=== PATIENT | male | born 1965 | race Caucasian/White ===

== ENCOUNTER 2019-11-05 08:24 | Day surgery (SDC) | payer BC ==
[2019-11-04 09:00] VITALS: BMI 22.8
[~2019-11-05 08:24] MED LIST: LACTATED RINGERS 1,000 ML IV SCH; LIDOCAINE 1% (10MG/ML) FOR IV START INTRADERMA PRN
[2019-11-05 08:48] VITALS: TEMP 98.5
[2019-11-05] MEDS ORDERED: PROPOFOL 10 MG/ML 20 ML VIAL IV ONE (10:01)
[2019-11-05] MEDS ORDERED: LIDOCAINE 1% INJ 10MG/ML (20 ML MDV) ONE (10:01)
--- NOTE | 2019-11-05 10:36 | P.PCN ---
Date of Procedure: 11/05/19 Procedure(s) Performed: Brief history: Patient is a pleasant 54-year-old white male scheduled for an elective upper endoscopy as well as colonoscopy as a part of evaluation of conference of GERD and screening for colon cancer. He was diagnosed with colon cancer in 1984 and is status post chemoradiation therapy and has been in clinical remission. Omeprazole 40 mg daily for possible GERD. Procedure performed: Esophagogastroscopy Colonoscopy Preoperative diagnosis: Long-standing history of GERD Screening for colon cancer Anesthesia: MAC Procedure: After informed consent was obtained from the patient was brought into the endoscopy unit and IV sedation was administered by anesthesia under continuous monitoring. Initially upper endoscopy was. The Olympus GF 160 video endoscope was inserted inserted into the mouth and esophaguscould not be intubated because of severe scarring at the level of the upper esophageal sphincter with possible stricture in this area. The Olympus Video Pediatric Upper Endoscopy Was Then Used but Could Not Intubate the Esophagus because of the scarring and stricture involving the upper esophageal sphincter.. At this time a bronchoscope was and gently was able to advance the scope into the stomach. It was insufflated into the stomach and upon careful examination the antrum and body, appeared normal. However couldn't be visualized because of the stomach was not possible. The scope was then withdrawn into the esophagus. The GE junction was located at 36 cm to the incisors. It appeared regular with no erythema erosions or ulcerations. Rest of the esophagus appeared normal. Patient tolerated the procedure well. At this time the patient continued to remain sedation. Initial digital rectal examination was normal. Olympus CF 160 video colonoscope was then inserted into the rectum and gradually advanced to the cecum without any difficulty. Careful examination was performed as the scope was gradually being withdrawn. The prep was excellent. The cecum, ascending colon, transverse colon, descending colon, sigmoid colon and rectum appeared normal. Scattered sigmoid diverticulosis seen. Retroflexion was performed in the rectum and no lesions were noted. Patient tolerated the procedure well. Impression: 1. Upper endoscopy revealed normal esophagus with no evidence of Jarvis's esophagus normal-appearing stomach. Scarring of the upper esophageal sphincter precluding passage of the regular upper endoscopy 2. Colonoscopy revealed scattered sigmoidal diverticulosis but no evidence of colorectal neoplasia Recommendations: Findings of this examination were discussed with the patient as well as. Her family. He was advised to have a repeat screening colonoscopy in 10 years. He will continue with omeprazole 20 mg daily and follow antireflux measures.
[2019-11-05 10:39] VITALS: PULSE 64; RESP 17
[2019-11-05 10:46] VITALS: BP 95/64
== END 2019-11-05 11:13 | disposition home or self-care (01) ==
LOC: ORWHC2ENDO 08:24
PROVIDERS: ATTEND Internal Medicine Gastroenterology
DX: Z12.11 Encounter for screening for malignant neoplasm of colon (principal); K57.30 Diverticulosis of large intestine without perforation or abscess without bleeding; K21.9 Gastro-esophageal reflux disease without esophagitis; K22.2 Esophageal obstruction; E07.9 Disorder of thyroid, unspecified; Z85.038 Personal history of other malignant neoplasm of large intestine; Z92.21 Personal history of antineoplastic chemotherapy; Z92.3 Personal history of irradiation; Z91.048 Other nonmedicinal substance allergy status; Z79.899 Other long term (current) drug therapy; Z79.890 Hormone replacement therapy; Z91.041 Radiographic dye allergy status; Z85.21 Personal history of malignant neoplasm of larynx
CPT/HCPCS: 43235; G0105; J2001; J2704

== ENCOUNTER 2021-09-27 20:50 | Emergency (ER) | payer BC ==
[2021-09-27 21:00] VITALS: TEMP 98.7
[2021-09-27] MEDS ORDERED: SODIUM CHLORIDE 0.9% 1,000 ML IV STA (21:34)
--- NOTE | 2021-09-27 21:45 | ED ---
Syncope HPI - General Chief Complaint: Syncope Stated Complaint: Syncope, Seizure Time Seen by Provider: 09/27/21 21:18 Source: patient, RN notes reviewed, old records reviewed Mode of arrival: ambulatory Limitations: no limitations - History of Present Illness Initial Comments: This is a 56-year-old male to the emergency department for evaluation. Connie he coming in for syncope was concern for maybe seizure-like activity. He was playing again with his sons or was choking on some water he was concern for loss of breath, she was concern a pass out he did hit the ground. No prior history of syncope he does struggle with swallowing eating and drinking all time. No travel history or sick contacts. Only medical history is of cancer throat cancer which is been years ago. Currently takes no medications no fevers cough congestion currently no headache chest pain shortness breath or abdominal pain MD Complaint: loss of consciousness, collapsed -: minutes(s) Prodromal Symptoms: lightheaded, shortness of breath -: second(s) Witnessed: yes - by bystander Injuries Sustained Associated with Event: None Current Symptoms: back to baseline Context: at rest Treatments Prior to Arrival: none - Related Data Home Medications Medication Instructions Recorded Confirmed Levothyroxine Sodium [Synthroid] 50 mcg PO DAILY 11/04/19 09/27/21 Omeprazole Magnesium [PriLOSEC OTC] 20 mg PO DAILY 11/04/19 09/27/21 Loratadine [Claritin] 10 mg PO DAILY PRN 09/27/21 09/27/21 Allergies Allergy/AdvReac Type Severity Reaction Status Date / Time Iodinated Contrast Media Allergy Rash/Hives Verified 09/27/21 22:09 Review of Systems ROS Statement: Those systems with pertinent positive or pertinent negative responses have been documented in the HPI. ROS Other: All systems not noted in ROS Statement are negative. 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 History of Any Multi-Drug Resistant Organisms: None Reported Past Surgical History: Adenoidectomy Additional Past Surgical History / Comment(s): Larynx biopsy Past Anesthesia/Blood Transfusion Reactions: Previous Problems w/ Anesthesia Additional Past Anesthesia/Blood Transfusion Reaction / Comment(s): woke up violent as child. Past Psychological History: No Psychological Hx Reported Smoking Status: Current some day smoker Past Alcohol Use History: Occasional Past Drug Use History: Marijuana - Past Family History Mother Family Medical History: No Reported History General Exam General appearance: alert, in no apparent distress Head exam: Present: atraumatic, normocephalic, normal inspection Eye exam: Present: normal appearance, PERRL, EOMI. Absent: scleral icterus, conjunctival injection, periorbital swelling ENT exam: Present: normal exam, mucous membranes moist Neck exam: Present: normal inspection. Absent: tenderness, meningismus, lymphadenopathy Respiratory exam: Present: normal lung sounds bilaterally. Absent: respiratory distress, wheezes, rales, rhonchi, stridor Cardiovascular Exam: Present: regular rate, normal rhythm, normal heart sounds. Absent: systolic murmur, diastolic murmur, rubs, gallop, clicks GI/Abdominal exam: Present: soft, normal bowel sounds. Absent: distended, tenderness, guarding, rebound, rigid Extremities exam: Present: normal inspection, full ROM, normal capillary refill. Absent: tenderness, pedal edema, joint swelling, calf tenderness Back exam: Present: normal inspection Neurological exam: Present: alert, oriented X3, CN II-XII intact Psychiatric exam: Present: normal affect, normal mood Skin exam: Present: warm, dry, intact, normal color. Absent: rash Course Vital Signs 09/27/21 09/27/21 09/27/21 20:52 21:00 22:00 Temperature 98.7 F Pulse Rate 81 75 75 Respiratory 18 16 16 Rate Blood Pressure 126/86 112/79 O2 Sat by Pulse 97 95 96 Oximetry 09/27/21 23:26 Temperature Pulse Rate 71 Respiratory 16 Rate Blood Pressure 115/73 O2 Sat by Pulse 100 Oximetry - Reevaluation(s) Reevaluation #1: 09/27/21 22:08 Medical record is reviewed Reevaluation #2: 09/28/21 Patient has no history of syncope or seizures, no recurrent syncope or seizure here in the ER Reevaluation #3: 09/28/21 Patient informed results and questions answered Medical Decision Making - Medical Decision Making 56 male to the emergency department for evaluation. Patient has no recurrent syncope here in the ER patient presents after syncopal event testing is negative and he can be discharged home - Lab Data Result diagrams: 09/27/21 21:34 09/27/21 21:34 Lab Results 09/27/21 09/27/21 09/27/21 Range/Units 21:34 21:34 21:34 WBC 4.8 (3.8-10.6) k/uL RBC 4.56 (4.30-5.90) m/uL Hgb 14.9 (13.0-17.5) gm/dL Hct 43.5 (39.0-53.0) % MCV 95.6 (80.0-100.0) fL MCH 32.6 (25.0-35.0) pg MCHC 34.1 (31.0-37.0) g/dL RDW 12.3 (11.5-15.5) % Plt Count 246 (150-450) k/uL MPV 7.8 Neutrophils % 57 % Lymphocytes % 26 % Monocytes % 8 % Eosinophils % 5 % Basophils % 1 % Neutrophils # 2.7 (1.3-7.7) k/uL Lymphocytes # 1.3 (1.0-4.8) k/uL Monocytes # 0.4 (0-1.0) k/uL Eosinophils # 0.2 (0-0.7) k/uL Basophils # 0.1 (0-0.2) k/uL PT 9.5 (9.0-12.0) sec INR 0.9 (<1.2) APTT 24.6 (22.0-30.0) sec D-Dimer 0.38 (<0.60) mg/L FEU Sodium 138 (137-145) mmol/L Potassium 4.2 (3.5-5.1) mmol/L Chloride 105 (98-107) mmol/L Carbon Dioxide 23 (22-30) mmol/L Anion Gap 10 mmol/L BUN 13 (9-20) mg/dL Creatinine 0.82 (0.66-1.25) mg/dL Est GFR (CKD-EPI)AfAm >90 (>60 ml/min/1.73 sqM) Est GFR (CKD-EPI)NonAf >90 (>60 ml/min/1.73 sqM) Glucose 133 H (74-99) mg/dL Calcium 9.0 (8.4-10.2) mg/dL Phosphorus 4.2 (2.5-4.5) mg/dL Magnesium 1.8 (1.6-2.3) mg/dL Total Bilirubin 0.2 (0.2-1.3) mg/dL AST 45 (17-59) U/L ALT 69 H (4-49) U/L Alkaline Phosphatase 91 (38-126) U/L Troponin I (0.000-0.034) ng/mL NT-Pro-B Natriuret Pep pg/mL Total Protein 7.0 (6.3-8.2) g/dL Albumin 4.3 (3.5-5.0) g/dL TSH 2.450 (0.465-4.680) mIU/L 09/27/21 09/27/21 Range/Units 21:34 21:34 WBC (3.8-10.6) k/uL RBC (4.30-5.90) m/uL Hgb (13.0-17.5) gm/dL Hct (39.0-53.0) % MCV (80.0-100.0) fL MCH (25.0-35.0) pg MCHC (31.0-37.0) g/dL RDW (11.5-15.5) % Plt Count (150-450) k/uL MPV Neutrophils % % Lymphocytes % % Monocytes % % Eosinophils % % Basophils % % Neutrophils # (1.3-7.7) k/uL Lymphocytes # (1.0-4.8) k/uL Monocytes # (0-1.0) k/uL Eosinophils # (0-0.7) k/uL Basophils # (0-0.2) k/uL PT (9.0-12.0) sec INR (<1.2) APTT (22.0-30.0) sec D-Dimer (<0.60) mg/L FEU Sodium (137-145) mmol/L Potassium (3.5-5.1) mmol/L Chloride (98-107) mmol/L Carbon Dioxide (22-30) mmol/L Anion Gap mmol/L BUN (9-20) mg/dL Creatinine (0.66-1.25) mg/dL Est GFR (CKD-EPI)AfAm (>60 ml/min/1.73 sqM) Est GFR (CKD-EPI)NonAf (>60 ml/min/1.73 sqM) Glucose (74-99) mg/dL Calcium (8.4-10.2) mg/dL Phosphorus (2.5-4.5) mg/dL Magnesium (1.6-2.3) mg/dL Total Bilirubin (0.2-1.3) mg/dL AST (17-59) U/L ALT (4-49) U/L Alkaline Phosphatase (38-126) U/L Troponin I <0.012 (0.000-0.034) ng/mL NT-Pro-B Natriuret Pep 32 pg/mL Total Protein (6.3-8.2) g/dL Albumin (3.5-5.0) g/dL TSH (0.465-4.680) mIU/L - Radiology Data Radiology results: report reviewed (Chest x-rays negative for acute disease), image reviewed Disposition Clinical Impression: Vasovagal syncope, Syncope Disposition: HOME SELF-CARE Condition: Good Instructions (If sedation given, give patient instructions): Syncope (ED) Is patient prescribed a controlled substance at d/c from ED?: No Referrals: Marta Gorman MD [Primary Care Provider] - 1-2 days Time of Disposition: 23:50
[2021-09-27 21:54] VITALS: RESP 16
[2021-09-27 22:11] LABS: Basophils # (A) 0.1 k/uL (0-0.2); Basophils % (A) 1 %; Eosinophils # (A) 0.2 k/uL (0-0.7); Eosinophils % (A) 5 %; HCT 43.5 % (39.0-53.0); HGB 14.9 gm/dL (13.0-17.5); Lymphocytes # (A) 1.3 k/uL (1.0-4.8); Lymphocytes % (A) 26 %; MCH 32.6 pg (25.0-35.0); MCHC 34.1 g/dL (31.0-37.0); MCV 95.6 fL (80.0-100.0); Mean Platelet Volume 7.8; Monocytes # (A) 0.4 k/uL (0-1.0); Monocytes % (A) 8 %; Neutrophils # (A) 2.7 k/uL (1.3-7.7); Neutrophils % (A) 57 %; Platelet Count 246 k/uL (150-450); RBC 4.56 m/uL (4.30-5.90); RDW 12.3 % (11.5-15.5); WBC 4.8 k/uL (3.8-10.6)
--- NOTE | 2021-09-27 22:18 | XR ---
EXAMINATION TYPE: XR chest 1V portable DATE OF EXAM: 09/27/2021 COMPARISON: NONE HISTORY: Syncope TECHNIQUE: Single view FINDINGS: There is no heart failure nor confluent pneumonic infiltrate. Costophrenic angles are clear . Bony thorax is intact IMPRESSION: No active cardiopulmonary disease.
[2021-09-27 22:20] LABS: INR 0.9 (<1.2); Partial Thromboplastin Time 24.6 sec (22.0-30.0); Prothrombin Time 9.5 sec (9.0-12.0)
[2021-09-27 22:34] LABS: ALT 69 U/L (4-49); AST 45 U/L (17-59); African American GFR (CKD) >90 (>60 ml/min/1.73 sqM); Albumin 4.3 g/dL (3.5-5.0); Alkaline Phosphatase 91 U/L (38-126); Anion Gap 10 mmol/L; Blood Urea Nitrogen 13 mg/dL (9-20); Carbon Dioxide 23 mmol/L (22-30); Chloride 105 mmol/L (98-107); Glucose 133 mg/dL (74-99); Magnesium 1.8 mg/dL (1.6-2.3); Non-African American GFR(CKD) >90 (>60 ml/min/1.73 sqM); Phosphorus 4.2 mg/dL (2.5-4.5); Potassium 4.2 mmol/L (3.5-5.1); Sodium 138 mmol/L (137-145); Total Bilirubin 0.2 mg/dL (0.2-1.3)
[2021-09-27 23:27] VITALS: BP 115/73; PULSE 71
== END 2021-09-27 23:28 | disposition home or self-care (01) ==
LOC: EC 20:50
DX: R55 Syncope and collapse (principal); E07.9 Disorder of thyroid, unspecified; Z79.899 Other long term (current) drug therapy; K21.9 Gastro-esophageal reflux disease without esophagitis; Z79.83 Long term (current) use of bisphosphonates; Z91.041 Radiographic dye allergy status
CPT/HCPCS: 36415; 71045; 80053; 83735; 83880; 84100; 84443; 84484; 85025; 85379; 85610; 85730; 93005; 96360; 99285

== ENCOUNTER 2021-10-24 17:17 | Emergency (ER) | payer BC ==
[2021-10-24 17:22] VITALS: BP 164/90; PULSE 62; RESP 16; TEMP 97.8
== END 2021-10-24 18:31 | disposition left against medical advice (07) ==
LOC: EC 17:17
DX: Z53.9 Procedure and treatment not carried out, unspecified reason (principal)
CPT/HCPCS: 93005; 99499

== ENCOUNTER → 2021-12-26 | Outpatient (CLI) | payer BC ==
[2021-12-26 18:02] LABS: HCT 43.1 % (39.6-50.0); HGB 14.8 g/dL (13.0-17.0); MCH 31.4 pg (27.0-32.0); MCHC 34.3 g/dL (32.0-37.0); MCV 91.5 fL (80.0-97.0); Mean Platelet Volume 10.5 fL (9.5-12.2); NRBC Per 100 WBC 0 /100 WBCS (0.0-0.0); Platelet Count 286 X 10*3/uL (140-440); RBC 4.71 X 10*6/uL (4.40-5.60); RDW 12.7 % (11.5-14.5); WBC 6.56 X 10*3/uL (4.50-10.00)
[2021-12-26 18:17] LABS: Anion Gap 11.6 mmol/L (10.00-18.00); Blood Urea Nitrogen 16.5 mg/dL (9.0-27.0); Carbon Dioxide 25.4 mmol/L (20.0-27.5); Non-African American GFR(CKD) 95.8 (60.0-200.0); Potassium 4.5 mmol/L (3.5-5.5)
== END | disposition home or self-care (01) ==
LOC: LABPAT 10:08
PROVIDERS: ATTEND Internal Medicine Interventional Cardiology
DX: Z01.812 Encounter for preprocedural laboratory examination (principal); R07.9 Chest pain, unspecified; R94.39 Abnormal result of other cardiovascular function study
CPT/HCPCS: 80051; 82565; 84520; 85027

== ENCOUNTER 2022-01-10 06:15 | Day surgery (SDC) | payer BC ==
[~2022-01-10 06:15] MED LIST changes: +ALPRAZolam 0.25 MG TAB PO PRN; +ALPRAZolam 0.5 MG TAB PO PRN; -LACTATED RINGERS 1,000 ML IV SCH; -LIDOCAINE 1% (10MG/ML) FOR IV START INTRADERMA PRN; +NITROGLYCERIN SL TABS 0.4 MG TAB SUBLINGUAL PRN
[2022-01-10] MEDS: SODIUM CHLORIDE 0.9% 1,000 ML in EMPTY BAG 1 BAG IV SCH ×2 (06:25→20:13)
[2022-01-10] MEDS ORDERED: HEPARIN SODIUM,PORCINE 2,500 UNIT in SODIUM CHLORIDE 0.9% 250 ML IRRIGATION PRN (07:00)
[2022-01-10] MEDS ORDERED: ASPIRIN 325 MG TAB PO ONE (07:00)
[2022-01-10] MEDS ORDERED: HEPARIN SODIUM,PORCINE 10,000 UNIT in SODIUM CHLORIDE 0.9% 1,000 ML IRRIGATION PRN (07:00)
[2022-01-10] MEDS ORDERED: ATORVASTATIN 80 MG TAB PO ONE (07:00)
[2022-01-10] MEDS ORDERED: VERAPAMIL 2.5 MG/ML 2 ML AMP ONE (07:19)
[2022-01-10] MEDS ORDERED: HEPARIN SODIUM 1,000 UN/ML (10ML VL) ONE (07:28)
[2022-01-10] MEDS ORDERED: fentaNYL (PF) 50 MCG/ML 2 ML AMP ONE (07:28)
[2022-01-10] MEDS ORDERED: fentaNYL (PF) 50 MCG/ML 2 ML AMP IV ONE (07:39)
[2022-01-10] MEDS ORDERED: MIDAZOLAM 2 MG/2 ML VIAL IV ONE (07:43)
[2022-01-10] MEDS ORDERED: LIDOCAINE 1% INJ 10MG/ML (30 ML VIAL-PF) SQ ONE (07:43)
[2022-01-10] MEDS ORDERED: VERAPAMIL SYRINGE (5 MG/10 ML) INTRAARTER ONE (07:44)
[2022-01-10] MEDS: HEPARIN SODIUM 1,000 UN/ML (10ML VL) IV ONE ×4 (07:48→08:25)
[2022-01-10] MEDS ORDERED: PRASUGREL 10 MG TAB ONE (07:55)
[2022-01-10] MEDS ORDERED: PRASUGREL 10 MG TAB PO ONE (08:00)
[2022-01-10] MEDS ORDERED: IOPAMIDOL-370 100ML BTL INJ ONE ×3 (08:13→09:07)
[2022-01-10] MEDS ORDERED: NITROGLYCERIN 1000MCG/10ML SYRINGE INTRACORON ONE (08:17)
[2022-01-10] MEDS ORDERED: ATROPINE SULFATE 0.1 MG/ML 10ML SYRINGE IV PRN (09:29)
[2022-01-10] MEDS ORDERED: ZOLPIDEM 5 MG TAB PO PRN (09:29)
[2022-01-10] MEDS ORDERED: MAG HYDROX/AL HYDROX/SIMETH 30 ML CUP PO PRN (09:29)
[2022-01-10] MEDS ORDERED: NITROGLYCERIN SL TABS 0.4 MG TAB SUBLINGUAL PRN (09:29)
[2022-01-10] MEDS ORDERED: RX INFO: IV CONTRAST WAS GIVEN 1 EACH MISC MISCELLANE PRN (09:29)
[2022-01-10] MEDS ORDERED: SODIUM CHLORIDE 0.9% 1,000 ML in EMPTY BAG 1 BAG IV SCH (09:30)
--- NOTE | 2022-01-10 09:43 | P.CARDCATH ---
Date of Procedure: 01/10/22 Description of Procedure: Cardiac Catheterization: The patient is a 56-year-old male who has been complaining of exertional chest discomfort, he had an abnormal stress test. Recommendations were made regarding cardiac catheterization, the risks and the complications were discussed with the patient who is in full understanding and agreement. Procedure Description: Patient was brought to labor relations worker in fasting semi-sedated state after receiving Fentanyl and Benadryl achieiving moderate conscious sedated state. Using Xylocaine Anesthesia and Seldinger technique, a 6-Mexican sheath was introduced in the right radial artery . Subsequently, selective coronary angiography was performed using a 5-Mexican 3.5 bend Sobeida catheter. Multiple views of the coronary artery including hemiaxial views were obtained. The 5-Mexican Pigtail catheter was used to cross the aortic valve and LVEDP was calculated. After removing the catheter a 6-Mexican EBU 3.75 guiding catheter was introduced in the system and after cannulating the left main a 0.014 BMW J-wire with a straight fine cross microcatheter where introduced, there was inability to advance the wire, it was exchanged to a 0.014 whisper J-wire and after crossing the lesion the wire was exchanged back to the BMW wire, following that the microcatheter was removed and a 2.0 x 12 mm Treck was advanced and multiple inflations at 8 demarco were done after removing the balloon a 2.5 x 12 mm NC Treck balloon was advanced and inflation at 8 demarco were done, subsequently a 3.0 x 18 mm Xience nyasia point stent was advanced and deployed at 16 demarco. After removing the balloon a [place] eye IVUS catheter was advanced and images were obtained, after removing the catheter is 3.5 x 15 mm NC Treck was advanced and one inflation at 8 demarco was done. After removing the balloon and the wire images were obtained and showed a stable stenting, at that time the wire was advanced into the circumflex, positioned in the distal OM, the 2.5 x 12 mm NC balloon was advanced and one inflation at 8 demarco was done after removing the balloon a 3.5 x 18 mm Xience nyasia point stent was advanced and deployed at 14 demarco after removing the balloon the IVUS was advanced and imaging were performed. After removing the catheter a 4.5 x 8 mm NC Treck was advanced and one inflation in the proxim al segment of the stent was performed at 10 deamrco, after the last inflation the balloon and the wire where withdrawn and images were obtained and reveal stable successful stenting. Following that, catheter and sheath were removed. Hemostasis was obtained with deployment of TR band . There was no immediate complication. Patient was returned to room in stable condition. Of note, the patient received a total of 6000 he received an units of intravenous heparin as well as intra-arterial verapamil. He received an oral loading dose of Effient. His ACT was monitored. He had EKG changes and chest discomfort that resolved at the end of the procedure. Findings: Left main: This is a short sized vessel, bifurcating into LAD and left circumflex, left main has no high-grade stenosis LAD: This is a large size vessel, giving rise to a large proximal diagonal branch subsequently distal total occlusion of the LAD with minimal antegrade flow Left circumflex: This is a nondominant vessel, large in caliber, giving rise to a large obtuse marginal branch that has a 90% stenosis at the proximal segment RCA: This is a nondominant vessel bifurcating distally into PDA and PLV, the RCA has mild obstructive disease Collaterals: There is collaterals RCA towards the distal LAD Left Ventriculogram: Not performed Hemodynamics: There was no gradient across the aortic valve, LVEDP was 14-16 mmHg Conclusion: 1. Occluded mid LAD 2. Critical stenosis in the proximal second OM 3. Mild disease in the RCA 4. Successful stenting of the mid LAD with reduction of the stenosis from 100% to 0% 5. Successful stenting of OM 2 with reduction of stenosis from 90% to 0% Recommendations: The patient will continue on aggressive coronary risk modification in addition to dual antiplatelets treatment with aspirin and after for at least 6 months. The findings and the recommendations were discussed with the patient and the family and they were in full understanding and agreement. Duration of sedation is 77 minutes.
[2022-01-10] MEDS: METOPROLOL TARTRATE 25 MG TAB PO SCH (20:12)
[2022-01-11] MEDS ORDERED: LEVOTHYROXINE 50 MCG TAB PO SCH (06:30)
--- NOTE | 2022-01-11 07:23 | P.PN ---
Subjective Progress Note Date: 01/11/22 PROGRESS NOTE The patient is a 56-year-old male who presented with symptoms of exertional chest discomfort and had an abnormal stress echocardiogram, underwent cardiac catheterization that revealed subtotally occluded LAD with critical stenosis in the left circumflex, underwent stenting to both vessels. He's feeling well this morning, he denies any chest discomfort, dizziness or palpitations. Medications: Aspirin, Lipitor 40 mg daily, Lopressor 25 mg twice a day, Effient 10 mg daily PHYSICAL EXAMINATION: Blood pressure 117/70 heart rate 60 LUNGS: Clear to auscultation HEART: Regular rate and rhythm, S1-S2 no S3 was a systolic murmur ABDOMEN: Soft, nontender, no organomegaly EXTREMETIES: No edema, right radial pulse intact LAB: EKG shows sinus mechanism with T-wave inversion anteriorly. IMPRESSION: 1. Status post stenting of the LAD and left circumflex 2. Hyperlipidemia PLAN: 1. Continue present therapy 2. Review labs 3. The patient will be discharged home today to be followed as an outpatient Objective - Vital Signs Vital signs: Vital Signs Temp 97.8 F 01/11/22 02:12 Pulse 55 L 01/11/22 02:12 Resp 17 01/11/22 02:12 BP 100/51 01/11/22 02:12 Pulse Ox 96 01/11/22 02:12 FiO2 Intake & Output 01/10/22 01/11/22 01/11/22 18:59 06:59 18:59 Intake Total 1080 Balance 1080 Weight 67.7 kg Intake: IV 300 Intake, IV Titration 300 Amount Sodium Chloride 0.9% 1, 300 000 ml In Empty Bag 1 bag @ 1 ML/KG/HR 68.039 mls/ hr IV .[id number] ON LICENSE OF [facility] Rx#: [id number] Oral 480 Other: Voiding Method Toilet # Voids 1 3
[2022-01-11 08:03] LABS: African American GFR (CKD) >90 (>60 ml/min/1.73 sqM); Anion Gap 5 mmol/L; Blood Urea Nitrogen 17 mg/dL (9-20); Calcium 8.9 mg/dL (8.4-10.2); Carbon Dioxide 30 mmol/L (22-30); Chloride 104 mmol/L (98-107); Glucose 112 mg/dL (74-99); Non-African American GFR(CKD) >90 (>60 ml/min/1.73 sqM); Sodium 139 mmol/L (137-145)
[2022-01-11 08:13] VITALS: BP 94/60; PULSE 57; RESP 18; TEMP 96.8
[2022-01-11] MEDS: METOPROLOL TARTRATE 25 MG TAB PO SCH (08:14)
[2022-01-11] MEDS ORDERED: PRASUGREL 10 MG TAB PO SCH (09:00)
[2022-01-11] MEDS ORDERED: ATORVASTATIN 40 MG TAB PO SCH (09:00)
[2022-01-11] MEDS ORDERED: ASPIRIN 81 MG PO SCH (09:00)
== END 2022-01-11 09:45 | disposition home or self-care (01) ==
LOC: CATHCVL 06:15 → 6NMEDSUR 09:03 → CATHCVL 01-11 09:45
PROVIDERS: ATTEND Internal Medicine Interventional Cardiology
DX: I25.10 Atherosclerotic heart disease of native coronary artery without angina pectoris (principal); I25.82 Chronic total occlusion of coronary artery; Z87.891 Personal history of nicotine dependence; E78.00 Pure hypercholesterolemia, unspecified; E78.2 Mixed hyperlipidemia; R55 Syncope and collapse; Z79.82 Long term (current) use of aspirin; Z79.890 Hormone replacement therapy; Z79.899 Other long term (current) drug therapy; Z91.048 Other nonmedicinal substance allergy status
CPT/HCPCS: 93458; 80048; C9600 ×2; C1769 ×4; C1887 ×2; C1894; C1725 ×4; C1753; C1874 ×2; J2250; J2001; J3010; J1644; Q9967

== ENCOUNTER → 2022-04-09 | Outpatient (CLI) | payer BC ==
--- NOTE | 2022-04-09 10:55 | CT ---
"EXAMINATION TYPE: CT angio neck CT DLP: 195.70 mGycm, Automated exposure control for dose reduction was used. DATE OF EXAM: 04/09/2022 10:42 AM COMPARISON: None. CLINICAL INDICATION:Male, 57 years old with history of I65.29; PHH, Carotid stenosis. Hx laryngeal ca . TECHNIQUE: Axially acquired helical CT angiogram of the neck was obtained with contrast utilizing 65 cc of Isovue-370 administered intravenously. Axial images are supplemented with 3D reconstructions wh ich were post-processed at an independent workstation. NASCET criteria used. FINDINGS: CTA NECK: Right Carotid System: There is complete occlusion of the right common carotid artery just at its origin and throughout the right internal carotid artery to its terminus. There is reconstitution of the right external carotid artery. Left Carotid System: The common carotid artery and external carotid artery are patent. Moderate focal narrowing of the pro ximal common carotid artery secondary to a calcified plaque (series 4, image 52). Last then 50% steno sis at the origin of the left internal carotid artery secondary to calcified and noncalcified plaque. The remaining portions of the internal carotid artery demonstrate normal size without significant na rrowing. Vertebral arteries are patent. Left vertebral artery is dominant. Moderate stenosis of the origins of the bilateral vertebral artery secondary to calcified and noncalcified plaque. There is a three-vessel aortic arch. The origins of the great vessels are patent. No evidence of hemo dynamically significant stenosis. IMPRESSION: 1. 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 2. Less than 50% stenosis of the origin of the left internal carotid artery secondary to calcified an d noncalcific plaque. 3. Moderate stenosis at the origins of the bilateral vertebral arteries secondary to calcified and no ncalcified plaque. A Yellow level critical message alert has been initiated for Robbi Dc MD via the [facility] 0 | Critical Results System on 04/09/2022 10:52 AM. This message alert has been sent to Robbi Dc MD via the preferences provided by the clinician for the receipt of Radiology Critical Findings. [facility] [place] [id number]."
== END | disposition home or self-care (01) ==
LOC: RADCTMAIN 09:29
PROVIDERS: ATTEND Internal Medicine Interventional Cardiology
DX: I65.23 Occlusion and stenosis of bilateral carotid arteries (principal); I67.2 Cerebral atherosclerosis
CPT/HCPCS: 70498; Q9967

== ENCOUNTER → 2022-07-01 | Outpatient (CLI) | payer BC ==
[2022-07-01 16:24] LABS: ALT 263 U/L (10-49); AST 115 U/L (14-35); African American GFR (CKD) 110.3 (60.0-200.0); Albumin 4.5 g/dL (3.8-4.9); Albumin/Globulin Ratio 1.88 (1.60-3.17); Alkaline Phosphatase 223 U/L (41-126); BUN/Creat Ratio 17.67 Ratio (12.00-20.00); Blood Urea Nitrogen 15.9 mg/dL (9.0-27.0); Calcium 9.8 mg/dL (8.7-10.3); Chloride 106 mmol/L (96-109); Chol/HDL Ratio 4.34 Ratio; Globulin 2.4 g/dL (1.6-3.3); Glucose 111 mg/dL (70-110); LDL Cholesterol,Calculated 178.7 mg/dL (0.0-131.0); Non-African American GFR(CKD) 95.1 (60.0-200.0); Potassium 4.5 mmol/L (3.5-5.5); Sodium 141 mmol/L (135-145); Total Protein 6.9 g/dL (6.2-8.2)
== END | disposition home or self-care (01) ==
LOC: LABWHC1 09:41
PROVIDERS: ATTEND Nurse Practitioner Adult Health
DX: I10 Essential (primary) hypertension (principal); E78.2 Mixed hyperlipidemia
CPT/HCPCS: 36415; 80053; 80061

== ENCOUNTER → 2022-11-11 | Outpatient (CLI) | payer BC ==
[2022-11-11 19:55] LABS: ALT 134 U/L (10-49); AST 62 U/L (14-35)
== END | disposition home or self-care (01) ==
LOC: LABWHC1 09:22
PROVIDERS: ATTEND Internal Medicine Interventional Cardiology
DX: E78.2 Mixed hyperlipidemia (principal)
CPT/HCPCS: 36415; 84450; 84460

== ENCOUNTER → 2022-11-18 | Outpatient (CLI) | payer BC ==
--- NOTE | 2022-11-18 10:44 | US ---
EXAMINATION TYPE: US abdomen complete DATE OF EXAM: 11/18/2022 COMPARISON: NONE CLINICAL INDICATION: Male, 57 years old with history of R10.13 EPIGASTRIC PAIN; Pt states episode of epigastric pain TECHNIQUE: Multiple sonographic images of the abdomen are obtained. FINDINGS: EXAM MEASUREMENTS: Liver Length: 17.3 cm Gallbladder Wall: 0.2 cm CBD: 0.4 cm Spleen: 11.0 cm Right Kidney: 10.7 x 4.5 x 5.2 cm Left Kidney: 10.1 x 5.6 x 5.2 cm GRINDER OUTSIDE DIAMETER NOTES: Pancreas: 3mm duct visualized mid body. Normal typically up to 2 mm. Tail obscured by overlying bow el gas Liver: Difficult to penetrate, echogenic in appearance Gallbladder: wnl Evidence for sonographic Ibarra's sign: No CBD: wnl Spleen: Possible granuloma Right Kidney: wnl Left Kidney: wnl Upper IVC: wnl Abd Aorta: Proximal portion gassed out, mid and distal portions wnl. IMPRESSION: 1. Slightly prominent pancreatic duct. Consider follow-up with ERCP.
== END | disposition home or self-care (01) ==
LOC: RADUSWWP 07:34
PROVIDERS: ATTEND Family Medicine
DX: K86.89 Other specified diseases of pancreas (principal); R10.13 Epigastric pain
CPT/HCPCS: 76700

== ENCOUNTER → 2022-11-25 | Outpatient (CLI) | payer BC ==
--- NOTE | 2022-11-25 11:23 | CT ---
EXAMINATION TYPE: CT abdomen w con DATE OF EXAM: 11/25/2022 COMPARISON: None HISTORY: epigastric pain CT DLP: 686 mGycm CONTRAST: CT scan of the abdomen is performed with Oral Contrast and with IV Contrast, patient injected with 10 0 mL of Isovue 300. FINDINGS: LUNG BASES-: No visible nodule. No infiltrate. LIVER/GB: No calcified gallstones. No space occupying hepatic lesion. Biliary tree is of normal ca liber. There is evidence of hepatic steatosis. PANCREAS: No inflammation. No distinct mass. SPLEEN: No splenic enlargement. No lesion seen. ADRENALS: No nodule. No thickening. KIDNEYS/BLADDER: No hydronephrosis. No nephrolithiasis. No distinct renal mass. Urinary bladder g rossly unremarkable. BOWEL: Visualized bowel loops reveals normal caliber without inflammatory process. LYMPH NODES: No greater than 1cm abdominal or pelvic lymph nodes are appreciated. AORTA: No significant abnormality. OSSEOUS STRUCTURES: No significant abnormality is seen. OTHER: No significant additional abnormality is seen. IMPRESSION: 1. No significant abnormality to account for the patient's symptoms.
== END | disposition home or self-care (01) ==
LOC: RADCTMAIN 10:30
PROVIDERS: ATTEND Family Medicine
DX: R10.13 Epigastric pain (principal)
CPT/HCPCS: 74160; Q9967

== ENCOUNTER → 2022-12-30 | Outpatient (CLI) | payer BC ==
[2022-12-30 16:36] LABS: ALT 139 U/L (10-49); AST 59 U/L (14-35); Albumin 4.6 d/dL (3.8-4.9); Alkaline Phosphatase 101 U/L (41-126); Blood Urea Nitrogen 15.2 mg/dL (9.0-27.0); Calcium 9.6 mg/dL (8.7-10.3); Carbon Dioxide 24.4 mmol/L (21.6-31.8); Chloride 106 mmol/L (96-109); Globulin 2.3 d/dL (1.6-3.3); Glucose 134 mg/dL (70-110); Iron 96 UG/DL (65-175); Potassium 4.7 mmol/L (3.5-5.5); Sodium 141 mmol/L (135-145); Total Bilirubin 0.2 mg/dL (0.3-1.2); Total Iron Binding Capacity 353 UG/DL (228-460); Total Protein 6.9 d/dL (6.2-8.2)
[2022-12-30 17:20] LABS: Basophils # (A) 0.06 X 10*3/uL (0.00-0.10); Basophils % (A) 1.2 %; Eosinophils # (A) 0.25 X 10*3/uL (0.04-0.35); Eosinophils % (A) 5.1 %; HGB 15.8 d/dL (13.0-17.0); Lymphocytes # (A) 1.15 X 10*3/uL (0.90-5.00); Lymphocytes % (A) 23.2 %; MCH 32.3 pg (27.0-32.0); MCHC 33.6 d/dL (32.0-37.0); MCV 96.1 FL (80.0-97.0); Mean Platelet Volume 10.2 FL (9.5-12.2); Monocytes # (A) 0.67 X 10*3/uL (0.20-1.00); Monocytes % (A) 13.5 %; NRBC Per 100 WBC 0 X 10*3/uL (0.00-0.01); Neutrophils % (A) 56.6 %; Platelet Count 245 X 10*3/uL (140-440); RBC 4.89 X 10*6/uL (4.40-5.60); RDW 13.2 % (11.5-14.5); WBC 4.95 X 10*3/uL (4.50-10.00)
[2022-12-31 01:04] LABS: Ceruloplasmin 18.4 mg/dL (20.0-60.0); Hepatitis B Surface Antigen Nonreactive; Hepatitis C IgG Antibody Nonreactive
[2022-12-31 07:49] LABS: Albumin 4.6 d/dL (3.8-4.9); Protein, Total 6.9 d/dL (6.2-8.2)
[2022-12-31 19:38] LABS: Gamma Globulin 0.88 d/dL (0.70-1.50)
== END | disposition home or self-care (01) ==
LOC: LABWHC1 08:14
PROVIDERS: ATTEND Internal Medicine Gastroenterology
DX: R74.01 Elevation of levels of liver transaminase levels (principal)
CPT/HCPCS: 36415; 80053; 82103; 82390; 82728; 83516; 83540; 83550; 84165; 85025; 86038; 86803; 87340

== ENCOUNTER → 2023-03-04 | Outpatient (CLI) | payer BC ==
[2023-03-04 11:04] LABS: Basophils # (A) 0.07 X 10*3/uL (0.00-0.10); Basophils % (A) 1.3 %; Eosinophils # (A) 0.39 X 10*3/uL (0.04-0.35); Eosinophils % (A) 7.2 %; HCT 46.3 % (39.6-50.0); HGB 16.1 g/dL (13.0-17.0); Lymphocytes % (A) 18.6 %; MCHC 34.8 g/dL (32.0-37.0); MCV 94.9 FL (80.0-97.0); Mean Platelet Volume 9.8 FL (9.5-12.2); Monocytes # (A) 0.58 X 10*3/uL (0.20-1.00); Monocytes % (A) 10.8 %; NRBC Per 100 WBC 0 X 10*3/uL (0.00-0.01); Neutrophils # (A) 3.32 X 10*3/uL (1.80-7.70); Neutrophils % (A) 61.5 %; Platelet Count 258 X 10*3/uL (140-440); RBC 4.88 X 10*6/uL (4.40-5.60); RDW 12.7 % (11.5-14.5); WBC 5.39 X 10*3/uL (4.50-10.00)
[2023-03-04 11:20] LABS: ALT 144 U/L (10-49); AST 87 U/L (14-35); Albumin 4.6 g/dL (3.8-4.9); Alkaline Phosphatase 105 U/L (41-126); BUN/Creat Ratio 17.78 Ratio (12.00-20.00); Calcium 9.9 mg/dL (8.7-10.3); Carbon Dioxide 23.6 mmol/L (21.6-31.8); Chloride 102 mmol/L (96-109); Globulin 2.3 g/dL (1.6-3.3); Glucose 127 mg/dL (70-110); Sodium 139 mmol/L (135-145); Total Bilirubin 0.7 mg/dL (0.3-1.2); Total Protein 6.9 g/dL (6.2-8.2)
== END | disposition home or self-care (01) ==
LOC: LABWHC1 07:17
PROVIDERS: ATTEND Internal Medicine Gastroenterology
DX: R19.4 Change in bowel habit (principal); R74.01 Elevation of levels of liver transaminase levels
CPT/HCPCS: 36415; 80053; 83516; 85025

== ENCOUNTER → 2023-04-21 | Outpatient (CLI) | payer BC ==
[2023-04-21 15:13] LABS: ALT 67 U/L (10-49); AST 40 U/L (14-35); Chol/HDL Ratio 2.34 Ratio; LDL Cholesterol,Calculated 56.3 mg/dL (0.0-131.0)
== END | disposition home or self-care (01) ==
LOC: LABWHC1 10:42
PROVIDERS: ATTEND Nurse Practitioner Adult Health
DX: E78.2 Mixed hyperlipidemia (principal)
CPT/HCPCS: 36415; 80061; 84450; 84460

== ENCOUNTER → 2023-06-09 | Outpatient (CLI) | payer OTHER ==
--- NOTE | 2023-06-12 12:41 | CT ---
EXAMINATION TYPE: CT angio neck DATE OF EXAM: 06/09/2023 3:45 PM CLINICAL INDICATION:Male, 58 years old with history of I65.29 OCCLUSION AND STENOSIS OF UNSPECIFIED C AROT; Carotid stenosis. Hx of larynx CA. COMPARISON: 04/09/2022. TECHNIQUE: Axially acquired helical CT Angiogram of the Neck was obtained with and without contrast. Axial images are supplemented with coronal and sagittal MIP reconstructions. 3D reconstructions were also performed and were post-processed at an independent workstation. Estimated carotid stenosis was calculated using the NASCET criteria. CT DLP: 289.0 mGycm, Automated exposure control for dose reduction was used. Contrast used:100ml mL of Isovue 370 with IV Contrast, Oral contrast used: , None. FINDINGS: CTA NECK: Right Carotid System: Occlusion of the right common carotid artery extending from its origin [place]. Left Carotid System: The common carotid is patent. There is high-grade stenosis in the midportion with 70-90% stenosis sec ondary to noncalcified plaque. Series 10 image 80. External carotid arteries are patent. There is sanjiv roximately 50 % stenosis at the carotid bifurcation secondary to calcified plaque. The rest of the in ternal carotid artery is patent. Vertebral arteries are patent without evidence hemodynamically significant stenosis. There is a three-vessel aortic arch. The origins of the great vessels are patent. No evidence of hemo dynamically significant stenosis. There is a level 1B lymph node measuring 7 mm in short axis which is stable from 04/09/2022. IMPRESSION: 1. Occlusion of the right common carotid artery extending from its origin [place]. Findings similar to 04/09/2022. 2. Left mid common carotid artery high-grade stenosis of 70-90%, similar to 04/09/2022. 3. Left common carotid artery is patent with atherosclerotic disease with up to 50% stenosis at the bifurcation secondary to predominantly calcified plaque. Thinning similar to 04/09/2022. 4. Stable left level 1B lymph node measuring up to 7 mm compared to 04/19/2022.
== END | disposition home or self-care (01) ==
LOC: RADCTMAIN 15:00
PROVIDERS: ATTEND Surgery
DX: I65.23 Occlusion and stenosis of bilateral carotid arteries (principal); Z85.21 Personal history of malignant neoplasm of larynx
CPT/HCPCS: 70498; Q9967

== ENCOUNTER → 2023-06-18 | Outpatient (CLI) | payer OTHER ==
[2023-06-18 11:56] LABS: Basophils # (A) 0.06 X 10*3/uL (0.00-0.10); Eosinophils # (A) 0.46 X 10*3/uL (0.04-0.35); Eosinophils % (A) 7.4 %; HCT 43.9 % (39.6-50.0); HGB 15.1 g/dL (13.0-17.0); Lymphocytes # (A) 1.55 X 10*3/uL (0.90-5.00); Lymphocytes % (A) 24.9 %; MCH 31.3 pg (27.0-32.0); MCHC 34.4 g/dL (32.0-37.0); MCV 91.1 FL (80.0-97.0); Mean Platelet Volume 10.2 FL (9.5-12.2); Monocytes # (A) 0.81 X 10*3/uL (0.20-1.00); NRBC Per 100 WBC 0 X 10*3/uL (0.00-0.01); Neutrophils # (A) 3.32 X 10*3/uL (1.80-7.70); Neutrophils % (A) 53.2 %; Platelet Count 236 X 10*3/uL (140-440); RBC 4.82 X 10*6/uL (4.40-5.60); RDW 11.9 % (11.5-14.5); WBC 6.23 X 10*3/uL (4.50-10.00)
[2023-06-18 13:16] LABS: ALT 48 U/L (10-49); AST 33 U/L (14-35); Albumin 4.2 g/dL (3.8-4.9); Alkaline Phosphatase 80 U/L (41-126); Blood Urea Nitrogen 17.2 mg/dL (9.0-27.0); Calcium 9.6 mg/dL (8.7-10.3); Carbon Dioxide 25.9 mmol/L (21.6-31.8); Chloride 107 mmol/L (96-109); Glucose 135 mg/dL (70-110); Potassium 4.7 mmol/L (3.5-5.5); Sodium 142 mmol/L (135-145); Total Bilirubin 0.3 mg/dL (0.3-1.2); Total Protein 6.2 g/dL (6.2-8.2)
== END | disposition home or self-care (01) ==
LOC: LABWHC1 08:26
PROVIDERS: ATTEND Internal Medicine Gastroenterology
DX: R74.01 Elevation of levels of liver transaminase levels (principal)
CPT/HCPCS: 36415; 80053; 85025

== ENCOUNTER → 2023-09-12 | Outpatient (CLI) | payer OTHER ==
--- NOTE | 2023-09-15 16:28 | CTL ---
EXAMINATION TYPE: CT Low Dose Lung DATE OF EXAM ORDERED: 09/12/2023 HISTORY: Personal history of nicotine dependence, 1.5 pack per day x40.6 years, not current smoker. L darryn cancer screening CT DLP: 88.[address] CTDI: 2.5 mGy Automated exposure control for dose reduction was used. SCREENING VISIT: First screening visit COMPARISON: None TECHNIQUE: Low dose computed tomography scan was performed through the chest at 1 mm thick sections a nd reconstructed images in multiple planes at 1 mm and [address] DIAGNOSTIC QUALITY: Satisfactory FINDINGS: Nodules: No clinically significant pulmonary nodule. LUNGS: COPD: Severity: None Fibrosis: Severity: None Lymph nodes: None Other findings: Trace secretion within the distal trachea. Minimal bibasilar dependent subsegmental a telectasis. RIGHT PLEURAL SPACE: Effusion: None Calcification: None Thickening: None Pneumothorax: None LEFT PLEURAL SPACE: Effusion: None Calcification: None Thickening: None Pneumothorax: None HEART: Heart Size: Normal Coronary Calcification: Moderate Pericardial Effusion: None OTHER FINDINGS: Upper abdomen: None Bony thorax: None Supraclavicular region: None Other: None IMPRESSION: No clinically significant pulmonary nodule. CT LUNG RAD AND CT CHEST RECOMMENDATION: Lung-Rad 1 Negative: Continue annual screening with LDCT in 12 months. S Modifier (other clinically significant findings): None
== END | disposition home or self-care (01) ==
LOC: RADCTMAIN 08:22
PROVIDERS: ATTEND Student in an Organized Health Care Education/Training Program
DX: Z12.2 Encounter for screening for malignant neoplasm of respiratory organs (principal); K14.8 Other diseases of tongue; C32.9 Malignant neoplasm of larynx, unspecified; R49.0 Dysphonia; Z87.891 Personal history of nicotine dependence
CPT/HCPCS: 71271

== ENCOUNTER 2023-10-03 12:16 | Inpatient (IN) | payer OTHER ==
[~2023-10-03 12:16] MED LIST changes: -ALPRAZolam 0.25 MG TAB PO PRN; -ALPRAZolam 0.5 MG TAB PO PRN; +HYDROmorphone 0.5 MG/0.5 ML SYRINGE IVP PRN; +LIDOCAINE 1% (10MG/ML) FOR IV START INTRADERMA PRN; -NITROGLYCERIN SL TABS 0.4 MG TAB SUBLINGUAL PRN; +fentaNYL (PF) 50 MCG/ML 2 ML AMP IVP PRN
[2023-10-03] MEDS: DEXAMETHASONE SOD PHOSPHATE 4 MG/ML 1 ML VIAL IV ONE (13:01)
[2023-10-03] MEDS: ONDANSETRON 4 MG/2 ML VIAL IVP ONE (13:01)
[2023-10-03] MEDS: LACTATED RINGERS 1,000 ML IV SCH ×2 (13:01→20:57)
[2023-10-03] MEDS: IV FLUID CONTINUATION 1,000 ML IV ONE (13:06)
[2023-10-03] MEDS: MIDAZOLAM 2 MG/2 ML VIAL IV PRN (13:19)
[2023-10-03 13:42] LABS: Basophils % (A) 1 %; Eosinophils # (A) 0.1 k/uL (0-0.7); Eosinophils % (A) 4 %; HCT 29.7 % (39.0-53.0); HGB 10.1 gm/dL (13.0-17.5); Lymphocytes # (A) 0.9 k/uL (1.0-4.8); Lymphocytes % (A) 27 %; MCH 31.2 pg (25.0-35.0); MCHC 33.9 g/dL (31.0-37.0); Mean Platelet Volume 8.6; Monocytes # (A) 0.3 k/uL (0-1.0); Monocytes % (A) 10 %; Neutrophils # (A) 1.9 k/uL (1.3-7.7); Neutrophils % (A) 56 %; Platelet Count 135 k/uL (150-450); RBC 3.23 m/uL (4.30-5.90); RDW 12.6 % (11.5-15.5); WBC 3.5 k/uL (3.8-10.6)
[2023-10-03] MEDS ORDERED: NEOSTIGMINE 1 MG/ML 10 ML VIAL ONE (13:47)
[2023-10-03] MEDS ORDERED: LIDOCAINE 1% INJ 10MG/ML (20 ML MDV) ONE (13:47)
[2023-10-03] MEDS ORDERED: PROPOFOL 10 MG/ML 20 ML VIAL IV ONE (13:47)
[2023-10-03] MEDS ORDERED: PHENYLEPHRINE 10 MG/ML VIAL ONE (13:47)
[2023-10-03] MEDS ORDERED: HEPARIN SODIUM,PORCINE 10,000 UNIT/ML 1 ML VIAL ONE (13:47)
[2023-10-03] MEDS ORDERED: fentaNYL (PF) 50 MCG/ML 2 ML AMP ONE (13:47)
[2023-10-03] MEDS ORDERED: SUCCINYLCHOLINE CHLORIDE 200 MG/10 ML VIAL IV ONE (13:47)
[2023-10-03] MEDS ORDERED: ROCURONIUM 10 MG/ML (5 ML VIAL) IV ONE (13:47)
[2023-10-03] MEDS ORDERED: HYDROmorphone (PF) 1 MG/ML ONE (13:47)
[2023-10-03] MEDS ORDERED: GLYCOPYRROLATE 0.2 MG/ML 2 ML VIAL ONE (13:47)
[2023-10-03] MEDS: THROMBIN (BOVINE) 5,000 UNIT VIAL TOPICAL ONE (14:20)
[2023-10-03] MEDS: LIDOCAINE 1% INJ 10MG/ML (20 ML MDV) SQ ONE (14:20)
[2023-10-03] MEDS: HEPARIN SODIUM (1,000 UNIT/ML) 2,000 UNIT in SODIUM CHLORIDE 0.9% 1,000 ML IRRIGATION ONE (14:23)
[2023-10-03] MEDS: ceFAZolin 2 GM in SODIUM CHLORIDE 0.9% 500 ML 500 ML IRRIGATION ONE (14:23)
[2023-10-03] MEDS: LACTATED RINGERS 1,000 ML IV ONE ×2 (14:24→16:54)
[2023-10-03] MEDS ORDERED: TRIMETHOBENZAMIDE 100 MG/ML 2 ML VIAL IM PRN (17:12)
[2023-10-03] MEDS ORDERED: BENZOCAINE/MENTHOL LOZENG 1 EACH LOZENGE MUCOUS MEM PRN (17:12)
[2023-10-03] MEDS ORDERED: MAG HYDROX/AL HYDROX/SIMETH 30 ML CUP PO PRN (17:12)
--- NOTE | 2023-10-03 17:12 | P.OP ---
Date of Procedure: 10/03/23 Description of Procedure: Date of Procedure: 10/03/2023 Preoperative Diagnosis: Left common and internal carotid artery stenosis >80% Postoperative Diagnosis: Same Procedure(s) Performed: Left carotid endarterectomy with patch angioplasty Anesthesia: DWIGHT Surgeon: Norman Olmos Estimated Blood Loss (ml): 30 IV Fluids: See anesthesia record Pathology: Carotid plaque Condition: stable Disposition: PACU Indications for Procedure: 58-year-old gentleman with history of laryngeal cancer with previous radiation therapy presented originally to the office secondary to severe carotid stenosis seen on previous CT scan. He had carotid Dopplers obtained which also demonstrated severe stenosis greater than 80%. When discussed options he was not a candidate for TCAR due to the location of plaque in his common carotid artery as well as the dense calcification and angles which he was not a candidate for transfemoral stenting due to this anatomy. He presents for carotid endarterectomy and patch angioplasty. Description of Procedure: After written informed consent was obtained the patient all risks benefits and complications including nerve damage were described the patient is brought to the operative suite and laid in a supine position. The area of the neck was prepped and draped in usual sterile fashion after appropriate anesthetic was performed per the anesthesiologist. A timeout was performed in normal fashion antibiotics were administered prior to incision. An oblique incision was then created just anterior to the sternocleidomastoid musculature with a 10 blade scalpel and dissection was carried down to the carotid sheath. The carotid sheath was then entered after facial vein was locat ed and suture ligated in normal fashion. The common carotid, internal carotid, external carotid and superior thyroid arteries were located and dissected free in a meticulous fashion circumferentially and controlled with vessel loops. There was dense scarring noted throughout the entirety of the dissection. Attention was then placed to locating the vagus nerve which was adhered to the common carotid artery on the anterior lateral aspect which was meticulously dissected free without injury. Hypoglossal nerve which was located and to be in dense scarring and was meticulously dissected free without damage. Once controlled patient was administered heparin and followed with ACTs for appropriate heparinization. Once ACT was above 200 the proximal and distal aspects of the dissection were then controlled with vascular clamps. Arteriotomy was then created with 11 blade scalpel and extended with Cruz Boogie scissors. Cerebral oximetry was followed and did not decrease more than 10%. No shunt was required and endarterectomy was then performed with a [place] and elevator. The plaque was dense and flaky with aspects of what appeared to be purulence. The plaque was then feathered at the distal aspect and the internal carotid artery and removed. The area was copiously irrigated with heparinized saline and all free debris was removed. A 0.8 x 8 cm bovine pericardial patch was then chosen and patch angioplasty was performed with 6-0 Prolene suture in a running fashion. Prior to last sutures being placed the inflow was released flushing any free debris out of the patch. This was reclamped and the internal carotid artery was released revealing good brisk flow and was once again reclamped. The external carotid and superior thyroid artery were then released followed by the common carotid artery to allow any free debris to be flushed into the external system. Final sutures were placed and secured. Internal carotid artery control was then released. Good pulsatile flow was noted through the patch and a Doppler was utilized demonstrating good brisk flow into the internal, external carotid arteries without any signs of obstruction. Hemostasis was then assured with Gelfoam and thrombin. A 10-[place] DARÍO drain was then placed in normal fashion and secured with 3-0 nylon suture. The incision was then closed in a multilayer fashion after hemostasis was assured. The skin was then cleansed and dressings were placed. Patient tolerated the procedure well and was following commands and moving all extremities. Patient was then sent to PACU for recovery.
[2023-10-03 18:16] LABS: Basophils % (A) 0 %; Eosinophils % (A) 0 %; HCT 41.1 % (39.0-53.0); Lymphocytes # (A) 0.7 k/uL (1.0-4.8); Lymphocytes % (A) 8 %; MCH 31.5 pg (25.0-35.0); MCHC 35.7 g/dL (31.0-37.0); MCV 88.3 fL (80.0-100.0); Monocytes # (A) 0.2 k/uL (0-1.0); Monocytes % (A) 2 %; Neutrophils % (A) 89 %; Platelet Count 189 k/uL (150-450); RBC 4.66 m/uL (4.30-5.90); RDW 12.8 % (11.5-15.5)
[2023-10-03 18:17] LABS: HGB 14.7 gm/dL (13.0-17.5)
[2023-10-03 19:00] VITALS: RESP 16
[2023-10-03] MEDS: ACETAMINOPHEN TAB 325 MG TAB PO PRN (19:08)
[2023-10-03 19:47] LABS: African American GFR (CKD) >90 (>60 ml/min/1.73 sqM); Anion Gap 7 mmol/L; Blood Urea Nitrogen 15 mg/dL (9-20); Carbon Dioxide 20 mmol/L (22-30); Chloride 110 mmol/L (98-107); Glucose 137 mg/dL (74-99); Non-African American GFR(CKD) >90 (>60 ml/min/1.73 sqM); Potassium 3.6 mmol/L (3.5-5.1); Sodium 137 mmol/L (137-145)
[2023-10-03] MEDS: MORPHINE SULFATE 2 MG/ML SYRINGE IVP PRN (20:59)
--- NOTE | 2023-10-04 08:03 | P.PN ---
Subjective Progress Note Date: 10/04/23 Principal diagnosis: carotid stenosis Doing well. Pain controlled. No issues overnight. Objective - Vital Signs Vital signs: Vital Signs Temp 97.1 F L 10/04/23 03:10 Pulse 85 10/04/23 03:10 Resp 16 10/04/23 03:10 BP 118/72 10/04/23 03:10 Pulse Ox 93 L 10/04/23 03:10 FiO2 Intake & Output 10/03/23 10/04/23 10/04/23 18:59 06:59 18:59 Intake Total 2452 180 Output Total 530 2700 Balance 1922 -2520 Weight 71.9 kg 73.5 kg Intake: IV 2452 Intake, IV Titration 180 Amount Lactated Ringers 1,000 ml 180 @ 60 mls/hr IV .[id number] [facility] Rx#:[id number] Output: Drainage 25 Left Neck 25 Urine 500 2675 Estimated Blood Loss 30 Other: Voiding Method Indwelling Catheter - Exam left neck incision clean, dry and intact no hematoma drain in place, minimal output No focal deficits, tongue midline, no facial droop - Labs CBC & Chem 7: 10/03/23 17:45 10/03/23 17:45 Labs: Abnormal Lab Results - Last 24 Hours (Table) 10/03/23 10/03/23 10/03/23 Range/Units 13:31 17:45 17:45 WBC 3.5 L (3.8-10.6) k/uL RBC 3.23 L (4.30-5.90) m/uL Hgb 10.1 L (13.0-17.5) gm/dL Hct 29.7 L (39.0-53.0) % Plt Count 135 L (150-450) k/uL Neutrophils # 8.0 H (1.3-7.7) k/uL Lymphocytes # 0.9 L 0.7 L (1.0-4.8) k/uL Chloride 110 H (98-107) mmol/L Carbon Dioxide 20 L (22-30) mmol/L Glucose 137 H (74-99) mg/dL Assessment and Plan Assessment: #1 Left CEA Plan: Removed drain Ok for discharge home Continue aspirin, statin follow up in 2 weeks.
[2023-10-04 08:12] VITALS: BP 124/74; PULSE 70; TEMP 97.4
[2023-10-04] MEDS: ASPIRIN 81 MG PO SCH (08:13)
[2023-10-04] MEDS: HYDROcodone/APAP 5-325MG 1 EACH TAB PO STA (09:21)
--- NOTE | 2023-10-04 09:42 | P.CONS ---
History of Present Illness - Reason for Consult Consult date: 10/04/23 Medical Management Requesting physician: Norman Olmos - History of Present Illness History of Presenting Illness: Patient is a very pleasant 58-year-old male with a past medical history of CAD with previous stenting, hypertension, hypothyroidism, GERD, laryngeal cancer status post radiation and chemo with chronic hoarse voice, and carotid stenosis. Patient admitted under vascular surgery team and was taken for left carotid endarterectomy with patch angiography on 10/03/2023. Surgical procedure was completed by Dr. Olmos. We were consulted for medical management throughout hospitalization. Patient is seen and fully evaluated at bedside this morning. He was sitting up in the chair and appears to be doing well. Dressing in place and is clean, dry, and intact to left lateral neck. No bleeding or drainage noted. Patient did report moderate postoperative pain and persistent headache throughout the night. Patient reports he was provided with Tylenol with no relief and does not want to take something as strong as morphine. Order placed for Sharon at this time. Patient denies having any dizziness, lightheadedness, chest pain, palpitations, changes in or difficulties with swallowing, nausea, vomiting, or any other complaints at this time. Review of systems: Pertinent positives and negatives as discussed in HPI, a complete review of systems was performed and all other systems are negative. Physical exam: Vital signs reviewed and stable. General: Nontoxic, no distress and appears stated age. Derm: Skin warm and dry, normal coloration for ethnicity. Head: Atraumatic, normocephalic and symmetric. Dressing in place left lateral neck, clean, dry, and intact with no shadowing or active bleeding noted. Eyes: EOMs intact, no lid lag, and anicteric sclera Mouth: no lip lesions, mucus membranes moist Cardiovascular: regular rate and rhythm with normal S1S2, no murmur, positive posterior tibial pulses bilaterally, and cap refill < 2 seconds. Lungs: Respirations even, regular, and unlabored on room air. Lungs CTA bilaterally, no rhonchi, no rales, no wheezing, and no accessory muscle usage. Abdominal: soft, nontender to palpation, no guarding, no appreciable organomegaly Ext: ROM intact. No gross muscle atrophy, no edema, no contractures Neuro: Speech clear, face symmetrical and CN II-XII grossly intact with no noted focal neuro deficits Psych: Alert and oriented to person, place, time, and situation. Appropriate and pleasant affect. Assessment and Plan of Care: Status post left carotid endarterectomy with patch angioplasty -Management per primary admitting vascular surgery team. CAD with previous stenting Hypertension -Continue daily medication regimen with aspirin 81 mg daily, metoprolol 25 mg twice daily, and sublingual nitroglycerin tablets as needed for chest pain. Hypothyroidism -Continue daily medication regimen with levothyroxine 50 mcg daily. GERD -Continue daily medication regimen with omeprazole 40 mg daily. Data and imaging reviewed. -Postoperative labs reviewed. CBC unremarkable. BMP showing hyperchloremia with chloride of 110 and hypocarbia with bicarb of 20. Blood glucose was 137. -Vital signs reviewed and stable. Blood pressure 124/74, heart rate 70, respiratory rate 16, temp 97.4 F, and SpO2 of 95% on room air. Medication reconciliation was completed. Discharge prescriptions sent for Plavix 75 mg daily x 30 days per recommendations of Dr. Olmos. Patient also provided with a 3-day prescription for pain medication Sharon 5/325 mg tablets every 4 hours as needed postoperative pain. Thank you for allowing us to participate in the care of this pleasant patient. Do not hesitate to contact us with questions. Someone can be reached from the [facility] hospitalist group all hours of the day at [phone] or via [employer]. Patient was seen independently by Nurse Practitioner. This document was prepared using [employer] dictation software. Please allow for errors in electronic prepress technician while rare they do occur. I reviewed the documentation as provided by the SAEED above, who is the original author of this note. I agree with the documented assessment and plan, with the following changes: none Past Medical History Past Medical History: Cancer, Chest Pain / Angina, GERD/Reflux, Hypertension, Thyroid Disorder Additional Past Medical History / Comment(s): 1992 Cancer larynx, had radiation & chemo tx, voice hoarse. left carotid endarectomy 10/03/23 History of Any Multi-Drug Resistant Organisms: None Reported Past Surgical History: Adenoidectomy, Heart Catheterization With Stent Additional Past Surgical History / Comment(s): Larynx biopsy, colonoscopy, stents x3 Past Anesthesia/Blood Transfusion Reactions: Previous Problems w/ Anesthesia Additional Past Anesthesia/Blood Transfusion Reaction / Comm: woke up violent as child. Date of Last Stent Placement:: 2021 Past Psychological History: No Psychological Hx Reported Smoking Status: Former smoker Past Alcohol Use History: None Reported Additional Past Alcohol Use History / Comment(s): Hx smoking late teens until 1992; Quit alcohol 2015. Past Drug Use History: None Reported Additional Drug Use History / Comment(s): instructed to refrain for 24 hours prior - Past Family History Mother Family Medical History: No Reported History Medications and Allergies Home Medications Medication Instructions Recorded Confirmed Type Levothyroxine Sodium [Synthroid] 50 mcg PO DAILY 11/04/19 10/03/23 History Omeprazole Magnesium [PriLOSEC OTC] 40 mg PO DAILY 11/04/19 10/03/23 History Loratadine [Claritin] 10 mg PO DAILY PRN 09/27/21 10/03/23 History Aspirin [Adult Low Dose Aspirin EC] 81 mg PO DAILY 01/09/22 10/03/23 History Metoprolol Tartrate [Lopressor] 25 mg PO BID #180 tab 01/11/22 10/03/23 Rx Nitroglycerin Sl Tabs [Nitrostat] 0.4 mg SUBLINGUAL Q5M PRN #25 tab 01/11/22 10/03/23 Rx Evolocumab [Repatha Sureclick] 140 mg SQ Q14D 09/29/23 10/03/23 History Naltrexone HCl 50 mg PO DAILY 09/29/23 10/03/23 History hydrOXYzine HCL 25 mg PO BID PRN 09/29/23 10/03/23 History Clopidogrel [Plavix] 75 mg PO DAILY 30 Days #30 tablet 10/04/23 Rx HYDROcodone/APAP 5-325MG [Sharon 1 tab PO Q4HR PRN 3 Days #18 tab 10/04/23 Rx 5-325] Allergies Allergy/AdvReac Type Severity Reaction Status Date / Time Iodinated Contrast Media Allergy Rash/Hives Verified 10/03/23 12:38 Physical Exam Osteopathic Statement: *. No significant issues noted on an osteopathic structural exam other than those noted in the History and Physical/Consult. Vitals: Vital Signs Temp Pulse Resp BP BP Pulse Ox 10/04/23 08:07 97.4 F L 70 16 124/74 95 10/04/23 03:10 97.1 F L 85 16 118/72 93 L 10/03/23 22:45 97.1 F L 89 16 116/70 94 L 10/03/23 20:00 16 07/05/24 19:48 97.0 F L 94 16 120/75 94 L 10/03/23 18:58 97.6 F 80 16 136/80 96 10/03/23 18:27 70 18 127/73 96 10/03/23 18:12 80 18 138/86 95 10/03/23 17:57 75 18 130/76 95 10/03/23 17:42 67 18 124/69 94 L 10/03/23 17:27 63 18 131/72 98 10/03/23 17:12 97.5 F L 69 18 105/60 97 10/03/23 12:37 97.3 F L 60 18 135/80 97 Intake and Output 10/03/23 10/04/23 10/04/23 22:59 06:59 14:59 Intake Total 580 Output Total 7889 855 Balance -8001 -042 Intake: IV 400 Intake, IV Titration 180 Amount Lactated Ringers 1,000 ml 180 @ 60 mls/hr IV .[id number] [facility] Rx#:[id number] Output: Drainage 20 5 Left Neck 20 5 Urine 2325 850 Estimated Blood Loss 30 Other: Voiding Method Indwelling Catheter Indwelling Catheter Weight 73.5 kg Results CBC & Chem 7: 10/03/23 17:45 10/03/23 17:45 Labs: Abnormal Lab Results - Last 24 Hours (Table) 10/03/23 10/03/23 10/03/23 Range/Units 13:31 17:45 17:45 WBC 3.5 L (3.8-10.6) k/uL RBC 3.23 L (4.30-5.90) m/uL Hgb 10.1 L (13.0-17.5) gm/dL Hct 29.7 L (39.0-53.0) % Plt Count 135 L (150-450) k/uL Neutrophils # 8.0 H (1.3-7.7) k/uL Lymphocytes # 0.9 L 0.7 L (1.0-4.8) k/uL Chloride 110 H (98-107) mmol/L Carbon Dioxide 20 L (22-30) mmol/L Glucose 137 H (74-99) mg/dL
--- NOTE | 2023-10-07 18:03 | P.DS ---
Providers Date of admission: 10/03/23 12:16 Attending physician: Norman Olmos DO Consults: 10/03/23 17:12 Consult Physician Routine Consulting Provider: Ezequiel Randolph Reason/Comments: medical management Do you want consulting provider notified?: Yes Primary care physician: Marta Gorman - Discharge Diagnosis(es) (1) Carotid stenosis Status: Acute Hospital Course: Left CEA performed without issues and patient admitted overnight. No issues the next day and drain was removed and he was discharged home. Procedures: Carotid endarterectomy Patient Condition at Discharge: Good Plan - Discharge Summary Discharge Rx Participant: No New Discharge Prescriptions: New Clopidogrel [Plavix] 75 mg PO DAILY 30 Days #30 tablet HYDROcodone/APAP 5-325MG [[place] 5-325] 1 tab PO Q4HR PRN 3 Days #18 tab PRN Reason: Pain Continue Omeprazole Magnesium [PriLOSEC OTC] 40 mg PO DAILY Levothyroxine Sodium [Synthroid] 50 mcg PO DAILY hydrOXYzine HCL 25 mg PO BID PRN PRN Reason: Anxiety Evolocumab [Repatha Sureclick] 140 mg SQ Q14D Loratadine [Claritin] 10 mg PO DAILY PRN PRN Reason: Allergy Symptoms Aspirin [Adult Low Dose Aspirin EC] 81 mg PO DAILY Metoprolol Tartrate [Lopressor] 25 mg PO BID #180 tab Nitroglycerin Sl Tabs [Nitrostat] 0.4 mg SUBLINGUAL Q5M PRN #25 tab PRN Reason: Chest Pain Naltrexone HCl 50 mg PO DAILY Discharge Medication List Levothyroxine Sodium [Synthroid] 50 mcg PO DAILY 11/04/19 [History] Omeprazole Magnesium [PriLOSEC OTC] 40 mg PO DAILY 11/04/19 [History] Loratadine [Claritin] 10 mg PO DAILY PRN 09/27/21 [History] Aspirin [Adult Low Dose Aspirin EC] 81 mg PO DAILY 01/09/22 [History] Metoprolol Tartrate [Lopressor] 25 mg PO BID #180 tab 01/11/22 [Rx] Nitroglycerin Sl Tabs [Nitrostat] 0.4 mg SUBLINGUAL Q5M PRN #25 tab 01/11/22 [Rx] Evolocumab [Repatha Sureclick] 140 mg SQ Q14D 09/29/23 [History] Naltrexone HCl 50 mg PO DAILY 09/29/23 [History] hydrOXYzine HCL 25 mg PO BID PRN 09/29/23 [History] Clopidogrel [Plavix] 75 mg PO DAILY 30 Days #30 tablet 10/04/23 [Rx] HYDROcodone/APAP 5-325MG [[place] 5-325] 1 tab PO Q4HR PRN 3 Days #18 tab 10/04/23 [Rx] Follow up Appointment(s)/Referral(s): Norman Olmos DO [STAFF PHYSICIAN] - 2 Weeks (PLEASE CALL OFFICE WHEN OPEN TO MAKE FOLLOW UP APPOINTMENT) Marta Gorman MD [Primary Care Provider] - 1 Week Patient Instructions/Handouts: Carotid Endarterectomy (DC) Activity/Diet/Wound Care/Special Instructions: Activity: As tolerated. No lifting greater than 15 lbs x 2 weeks. Ok to shower Diet: Heart healthy and carb consistent diet. Avoid salts, or foods with hidden salts such as canned or boxed foods and frozen dinners. Extra salt makes your heart work harder and traps the fluid in your body for longer. Special Instructions: Take all of your medications as directed and remember to keep all of your doctor's appointments and follow-up as needed. Thank you for allowing us to participate in your care, it was truly a pleasure having you for our patient!!! . Discharge Disposition: HOME SELF-CARE
== END 2023-10-04 10:59 | disposition home or self-care (01) | DRG 39 ==
LOC: 2ORMAIN 12:16 → 3SCARD 18:42
PROVIDERS: ADMIT Surgery; ATTEND Surgery
PROC: 03UL0KZ Supplement Left Internal Carotid Artery with Nonautologous Tissue Substitute, Open Approach (ICD-10-PCS; principal; 2023-10-03 14:00)
PROC: 03CL0ZZ Extirpation of Matter from Left Internal Carotid Artery, Open Approach (ICD-10-PCS; principal; 2023-10-03 14:00)
DX: I65.22 Occlusion and stenosis of left carotid artery (principal); E87.8 Other disorders of electrolyte and fluid balance, not elsewhere classified; E03.9 Hypothyroidism, unspecified; I10 Essential (primary) hypertension; I73.9 Peripheral vascular disease, unspecified; E78.2 Mixed hyperlipidemia; I25.10 Atherosclerotic heart disease of native coronary artery without angina pectoris; K21.9 Gastro-esophageal reflux disease without esophagitis; R49.0 Dysphonia; Z79.82 Long term (current) use of aspirin; Z79.02 Long term (current) use of antithrombotics/antiplatelets; Z79.890 Hormone replacement therapy; Z79.899 Other long term (current) drug therapy; Z87.891 Personal history of nicotine dependence; Z85.21 Personal history of malignant neoplasm of larynx; Z92.21 Personal history of antineoplastic chemotherapy; Z92.3 Personal history of irradiation; Z95.5 Presence of coronary angioplasty implant and graft; Z91.040 Latex allergy status
CPT/HCPCS: 80048; 85025; 86850; 86900; 86901; 88304; 88311

== ENCOUNTER → 2024-10-27 | Outpatient (CLI) | payer OTHER ==
[2024-10-27 15:33] LABS: ALT 84 U/L (10-49); AST 56 U/L (14-35); Cholesterol 159.00 mg/dL (0.00-200.00); HDL Cholesterol 72.40 mg/dL (40.00-60.00); LDL Cholesterol,Calculated 71.7 mg/dL (0.0-131.0); Triglycerides 74.30 mg/dL (0.00-149.00); VLDL Calculation 14.86 mg/dL (5.00-40.00)
== END | disposition home or self-care (01) ==
LOC: LABWHC1 07:58
PROVIDERS: ATTEND Internal Medicine Interventional Cardiology
DX: E78.2 Mixed hyperlipidemia (principal)
CPT/HCPCS: 36415; 80061; 84450; 84460